=== PATIENT | male | born 1990 | race Caucasian/White ===

== ENCOUNTER 2016-08-31 08:52 | Emergency (ER) | payer OTHER ==
[~2016-08-31] VITALS: Ht 170.2 cm; Wt 58.9 kg
[~2016-08-31 08:52] MED LIST: ALBU0.08 INH; AZIT500T PO; BUPR8MIS SL; DORN1SOL INH; GFNSR600 PO; MULTCHW22 PO; OMEP20TA PO; PANC1200 PO; PIPE1INJ11 IV; VITAMIN D2 1.25MG PO; [UNRECOGNIZED DRUG - CODE] IV
[2016-08-31 08:53] VITALS: BP 136/73; PULSE 117; TEMP 36.9; O2SAT 96; Ht 170.2 cm; Wt 58.9 kg
[2016-08-31] MEDS ORDERED: ALBINS/ INH (09:09)
[2016-08-31] MEDS ORDERED: PROPARACAINE HCL 0.5% OP SOLN 15 ML BTL ONE (09:29)
--- NOTE | 2016-08-31 17:22 | EMERGENCY ROOM VISIT NOTE ---
History First contact with patient: 09:18 Chief Complaint: EYE ASSESSMENT Stated Complaint: METAL SHAVING IN RIGHT EYE History of Present Illness The patient is a 26 year old male who presents to the Emergency Room with complaints of right eye discomfort and possible piece of metal in the eye. 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 He was unable to visualize a piece of metal in the eye, but has had persistent discomfort. He denies any photophobia or blurred vision. He rates his discomfort a 2 out of 10. Tetanus immunization is up-to- date. Review of Systems 10 system review was performed and was negative except for pertinent positives and negatives as indicated in history of present illness Past Medical/Surgical History Medical Problems: (1) Cystic fibrosis Family History FH: diabetes mellitus Social History Smoking Status: Current Some Day Smoker Alcohol Use: none Drug Use: none Marital Status: single Housing Status: lives with family Occupation Status: employed, student Current/Historical Medications Scheduled Albuterol Sulf (Proventil 0.083% 2.5MG/3ML), 2.5 MG INH QID Buprenorphine Hcl-Naloxone Hcl (Suboxone 8-2 Mg), 1 MIS SL BID Omeprazole (Omeprazole), 40 MG PO DAILY Pancrelipase (Lipase-Protease- (Creon 22043), 4 CAP PO WM Allergies Coded Allergies: No Known Allergies (Unverified , 11/21/04) Physical Exam Vital Signs Date Time Temp Pulse Resp B/P Pulse Ox O2 Delivery O2 Flow Rate FiO2 08/31/16 08:53 36.9 117 18 136/73 96 Room Air Right Eye Acuity: 20/15 Left Eye Acuity: 20/25 Pain Rating (0-10): 1.0 Physical Exam CONSTITUTIONAL: Healthy and well nourished. Alert and oriented X 3 with positive affect. HEENT: Normocephalic, atraumatic. Pupils equal, round and reactive. Patient has no bloody or mucopurulent drainage from the right eye. NECK: Full active range of motion without discomfort. MUSCULOSKELETAL: Full range of motion of all joints without discomfort. INTEGUMENTARY: No rash or other significant dermatologic conditions noted. NEUROLOGIC: No focal neurologic deficits noted. Medical Decision & Procedures Medications Administered Medications (Trade) Dose Ordered Sig/Brendan Route Start Time Stop Time Status Last Admin Dose Admin Proparacaine HCl (Alcaine 0.5% Oph Soln) 225 drops STK-MED ONCE .ROUTE 08/31/16 09:29 08/31/16 09:30 DC 08/31/16 09:29 225 DROPS Procedure Slit lamp and fluorescein exam were performed after applying 2 drops of Alcaine , which completely resolved the patient's discomfort. Examination shows no evidence for metallic foreign body within the lower conjunctival sac or under the upper eyelid with eversion. The patient does appear to have a small wound in the central axis of vision. Fluorescein exam confirms this wound, likely from a dislodged metallic foreign body. EOMs intact without discomfort. Fluorescein exam shows a negative Leonidas test. No additional corneal abrasions noted. ED Course Patient history and physical exam were performed. Nurse's notes were reviewed. Vital signs and visual acuity were reviewed and were normal. Slit lamp and fluorescein exam shows evidence for a corneal abrasion, likely from a prior metallic foreign body. The patient was encouraged to intermittently apply ice to the eye. Ibuprofen or Tylenol as needed for pain. Follow-up with ophthalmology if symptoms are not improving within the next 36-48 hours. The patient was happy with plan of care, voiced understanding of all discharge instructions, refused any prescription analgesics, and denied any pain at the conclusion of my exam. Impression Primary Impression: Right corneal abrasion Departure Information Dispostion Home / Self-Care Condition GOOD Referrals Arpit Baldwin D.O. Forms HOME CARE DOCUMENTATION FORM, IMPORTANT VISIT INFORMATION Patient Instructions My [facility] Additional Instructions Intermittently apply a cool compress for additional relief. Ibuprofen 800 mg and/or Tylenol 1000 mg every 8 hours. You may also alternate these medications for more effective pain relief: Ibuprofen --4 HRS--> Tylenol --4 HRS--> ibuprofen --4 HRS--> Tylenol .... Follow-up with ophthalmology (Dr. Baldwin) for any pain that does not improve within the next 48 hours. Problem Qualifiers Primary Impression: Right corneal abrasion Encounter type: initial encounter Qualified Codes: S05.01XA - Injury of conjunctiva and corneal abrasion without foreign body, right eye, initial encounter
== END 2016-08-31 10:29 | disposition home or self-care (01) ==
LOC: C.EDB 08:53
DX: S05.01XA Injury of conjunctiva and corneal abrasion without foreign body, right eye, initial encounter (principal); X58.XXXA Exposure to other specified factors, initial encounter; E84.9 Cystic fibrosis, unspecified; F17.200 Nicotine dependence, unspecified, uncomplicated; Z83.3 Family history of diabetes mellitus

== ENCOUNTER → 2017-03-17 | Outpatient (CLI) | payer OTHER ==
[~2017-03-17] MED LIST changes: +ALBINS/ INH; -ALBU0.08 INH; -AZIT500T PO; -DORN1SOL INH; -GFNSR600 PO; -MULTCHW22 PO; -PIPE1INJ11 IV; -VITAMIN D2 1.25MG PO; -[UNRECOGNIZED DRUG - CODE] IV
[2017-03-17 17:37] LABS: HEMATOCRIT 36.8 % (42-52); MEAN CELL VOLUME 91.8 fL (80-100); MEAN CORPUSCULAR HEMOGLOBIN 28.4 pg (25-34); MEAN PLATELET VOLUME 8.6 fL (7.4-10.4); PLATELET COUNT 370 K/uL (130-400); RED BLOOD COUNT 4.01 M/uL (4.7-6.1); WHITE BLOOD COUNT 8.99 K/uL (4.8-10.8)
[2017-03-17 17:56] LABS: BLOOD UREA NITROGEN 18 mg/dl (7-18); BUN/CREATININE RATIO 28.1 (10-20); CALCIUM 9.1 mg/dl (8.5-10.1); CARBON DIOXIDE 24 mmol/L (21-32); CHLORIDE 106 mmol/L (98-107); CREATININE 0.64 mg/dl (0.60-1.40); GLUCOSE 76 mg/dl (70-99); POTASSIUM 4.2 mmol/L (3.5-5.1); SODIUM 137 mmol/L (136-145)
--- NOTE | 2017-03-23 19:52 | CODING QUERY NO DIAGNOSIS ---
TREATMENT RENDERED WITHOUT A DIAGNOSIS 92 To promote full compliance with coding requirements relating to patient care, physician participation is requested in all cases of hatchery laborer uncertainty. Please assist us with providing a diagnosis/symptom for the test(s) below: A diagnosis/symptom was not documented on your Order. A valid diagnosis/symptom is required to bill all insurances. Please remember that we are unable to code a diagnosis of rule out, probable, possible, questionable, or suspected. DOS 03/17/17 Tests that require a diagnosis: * BASIC METABOLIC DIAGNOSIS: * CBC DIAGNOSIS: Provider Signature: Date: Thank you Miladis Mckenzie Health Information Management Once completed, please kindly fax back to [phone] For questions please call [phone]
== END | disposition home or self-care (01) ==
LOC: C.LABSPEC 13:16
PROVIDERS: ATTEND Internal Medicine Pulmonary Disease
DX: E84.9 Cystic fibrosis, unspecified (principal)